=== PATIENT | female | born 1990 ===

== ENCOUNTER 2021-09-15 15:25 | Emergency (ER) | payer OTHER, MEDICAID ==
[2021-09-15 21:16] LABS: Bilirubin,Urine NEG (Negative); Blood,Urine SM (Negative); Color,Urine Yellow (Yellow); Mucus,Urine 3+ /HPF; Urobilinogen,Urine < 2.0 mg/dL (<2.0)
[2021-09-15 21:21] LABS: HCG Qualitative,Urine Negative (Negative)
[2021-09-15] MEDS ORDERED: IBUPROFEN 600 MG TAB PO ONE (22:24)
[2021-09-15] MEDS ORDERED: LIDOCAINE-MPF (1%) 10 MG/1 ML VIAL 5 ML INFILTRATI ONE (22:24)
[2021-09-15] MEDS ORDERED: PHENAZOPYRIDINE 200 MG TAB PO ONE (22:25)
--- NOTE | 2021-09-15 22:34 | Emergency Department Report ---
ED Female HPI - General Chief complaint: Urogenital-Female Stated complaint: BURNING ON URINATION Source: patient Mode of arrival: Ambulatory Limitations: No Limitations - History of Present Illness Initial comments: Patient is a A0 31-year-old female with no past medical history who presents to the ED with complaint of acute onset persistent dysuria, urinary fr equency and urgency, vaginal irritation and suprapubic pressure for the last 4 days. Patient states that she has been taking [id number] medications with no relief. Patient denies fever, chills, nausea and vomiting, vaginal discharge, abdominal pain, sore throat, vaginal bleeding, dyspareunia, low back pain, diarrhea, chest pain or shortness of breath. MD Complaint: dysuria, pelvic pain (Suprapubic pressure), other (Urinary frequency and urgency) -: Sudden, days(s) (4) Location: suprapubic, other (vaginal) Radiation: suprapubic Severity: moderate Severity scale (0 -10): 5 Quality: dull, other (Pressure) Consistency: constant Improves with: none Worsens with: urination Are you Now?: No Last Menstrual Period: 08/31/21 EDC: 06/07/22 Associated Symptoms: denies other symptoms, abdominal pain (Suprapubic pressure), dysuria. denies: vaginal discharge, vaginal bleeding, nausea/vomiting, fever/chills, headaches, loss of appetite, shortness of breath, syncope, weakness - Related Data Sexually active: Yes : 2 Para: 2 A: 0 Previous Rx's Medication Instructions Recorded Last Taken Type Fluconazole [Diflucan TAB] 200 mg PO QDAY #2 tablet 09/15/21 Unknown Rx Ibuprofen [Motrin] 800 mg PO Q8HR PRN #30 tablet 09/15/21 Unknown Rx Phenazopyridine [Pyridium] 200 mg PO TID #21 tab 09/15/21 Unknown Rx cephALEXin [Keflex] 500 mg PO Q6HR #40 capsule 09/15/21 Unknown Rx Allergies Allergy/AdvReac Type Severity Reaction Status Date / Time No Known Allergies Allergy Unverified 09/15/21 15:40 ED Review of Systems ROS: Stated complaint: BURNING ON URINATION Other details as noted in HPI Constitutional: denies: chills, fever Eyes: denies: eye pain, eye discharge, vision change ENT: denies: ear pain, throat pain Respiratory: denies: cough, shortness of breath, wheezing Cardiovascular: denies: chest pain, palpitations Endocrine: no symptoms reported Gastrointestinal: denies: abdominal pain, nausea, diarrhea Genitourinary: urgency, dysuria, frequency, hematuria, other (Suprapubic pressure). denies: discharge Musculoskeletal: denies: back pain, joint swelling, arthralgia Skin: denies: rash, lesions Neurological: denies: headache, weakness, paresthesias Psychiatric: denies: anxiety, depression Hematological/Lymphatic: denies: easy bleeding, easy bruising ED Past Medical Hx - Medications Home Medications: Home Medications Medication Instructions Recorded Confirmed Last Taken Type Fluconazole [Diflucan TAB] 200 mg PO QDAY #2 tablet 09/15/21 Unknown Rx Ibuprofen [Motrin] 800 mg PO Q8HR PRN #30 tablet 09/15/21 Unknown Rx Phenazopyridine [Pyridium] 200 mg PO TID #21 tab 09/15/21 Unknown Rx cephALEXin [Keflex] 500 mg PO Q6HR #40 capsule 09/15/21 Unknown Rx ED Physical Exam - General Limitations: No Limitations General appearance: alert, in no apparent distress - Head Head exam: Present: atraumatic, normocephalic, normal inspection - Eye Eye exam: Present: normal appearance, PERRL, EOMI Pupils: Present: normal accommodation - ENT ENT exam: Present: normal exam, normal orophraynx, mucous membranes moist, TM's normal bilaterally, normal external ear exam - Neck Neck exam: Present: normal inspection, full ROM. Absent: tenderness - Respiratory Respiratory exam: Present: normal lung sounds bilaterally. Absent: respiratory distress, wheezes, rales, rhonchi, chest wall tenderness, accessory muscle use - Cardiovascular Cardiovascular Exam: Present: normal rhythm, bradycardia, normal heart sounds. Absent: systolic murmur, diastolic murmur, rubs, gallop - GI/Abdominal GI/Abdominal exam: Present: soft, normal bowel sounds. Absent: tenderness, guarding, rebound, hyperactive bowel sounds, organomegaly - Bi-manual exam: Present: other (Pelvic exam deferred at this time) - Extremities Exam Extremities exam: Present: normal inspection, full ROM, normal capillary refill. Absent: tenderness, pedal edema - Back Exam Back exam: Present: normal inspection, full ROM. Absent: tenderness, CVA tenderness (R), CVA tenderness (L), muscle spasm, paraspinal tenderness, vertebral tenderness - Neurological Exam Neurological exam: Present: alert, oriented X3, CN II-XII intact, normal gait, reflexes normal - Psychiatric Psychiatric exam: Present: normal affect, normal mood - Skin Skin exam: Present: warm, dry, intact, normal color. Absent: rash ED Course Vital Signs 09/15/21 15:41 Temperature 98.4 F Pulse Rate 55 L Respiratory 18 Rate Blood Pressure 102/62 [Right] O2 Sat by Pulse 99 Oximetry ED Medical Decision Making - Medical Decision Making This is a A0 31-year-old female with no past medical history who presents to the ED with complaint of acute onset persistent dysuria, urinary frequency and urgency, vaginal irritation and suprapubic pressure for the last 4 days. Patient states that she has been taking [id number] medications with no relief. In the ED, patient is alert and oriented x3 and is not in any distress. Urinalysis showed significant urinary tract infection. Patient was treated in the ED with Rocephin 1 g intramuscular injection and ibuprofen for pain. Patient was discharged home on antibiotics and pain medications and advised to follow-up with her SEROLOGIST physician or primary care physician in 7 to 10 days for reevaluation or return to the ED immediately if symptoms get worse. - Differential Diagnosis UTI; bacterial vaginosis; STD; ; trichomonas Critical care attestation.: If time is entered above; I have spent that time in minutes in the direct care of this critically ill patient, excluding procedure time. ED Disposition Clinical Impression: Acute urinary tract infection, Dysuria Disposition: 01 HOME / SELF CARE / HOMELESS Is pt being admited?: No Does the pt Need Aspirin: No Condition: Stable Instructions: Urinary Tract Infection, Adult, [id number], Dysuria Additional Instructions: Urinalysis showed significant urinary tract infection. Therefore take medication with food, drink plenty of fluids and follow-up with your primary care physician in 7 to 10 days for reevaluation. Return to the ED immediately if symptoms get worse. Prescriptions: Fluconazole [Diflucan TAB] 200 mg PO QDAY #2 tablet cephALEXin [Keflex] 500 mg PO Q6HR #40 capsule Ibuprofen [Motrin] 800 mg PO Q8HR PRN #30 tablet PRN Reason: Pain , Severe (7-10) Phenazopyridine [Pyridium] 200 mg PO TID #21 tab Referrals: [facility] [Provider Group] - 7-10 days Time of Disposition: 22:35 Print Language: [id number]
[2021-09-15 22:49] VITALS: BP 100/60
== END 2021-09-15 22:47 | disposition home or self-care (01) ==
LOC: ED 15:25
DX: N39.0 Urinary tract infection, site not specified (principal); Z79.899 Other long term (current) drug therapy
CPT/HCPCS: 81001; 81025; 87086; 96372; 99283; J0696; J3490